=== PATIENT | female | born 1970 | race African-American/Black ===

== ENCOUNTER 2016-09-28 17:21 | Emergency (ER) | payer MEDICAID ==
[~2016-09-28] VITALS: Ht 165.1 cm; Wt 95.0 kg
[~2016-09-28 17:21] MED LIST: DICL75 PO; GLUCTAB PO; GLYB1TAB51 PO; HALO2CON IM; ROBA750T3 PO
[2016-09-28 17:26] VITALS: BP 140/83; PULSE 96; RESP 16; TEMP 97.8; O2SAT 100
[2016-09-28] MEDS ORDERED: SODIUM CHLOR 0.9% 1000 ML INJ 1,000 ML IV SCH (17:44)
[2016-09-28] MEDS ORDERED: SODIUM CHLORIDE 0.9% FLUSH 5 ML FLUSH IVF PRN (17:45)
--- NOTE | 2016-09-28 17:56 | PD ---
HPI Chief Complaint: Edema Time Seen by Provider: 17:32 Travel History International Travel<30 days: No Contact w/Intl Traveler<30days: No Traveled to known affect area: No History of Present Illness HPI Patient is a 46-year-old female who presents to emergency room with complaints of pains to her ankles and feet bilaterally which has been ongoing for the past few weeks as well as swelling to her ankles which she noticed today. Patient reports that she has had increased tingling and pain to her ankles when she walks, reports that she has not suffered any injury or fall. Patient reports that pain is worse at night after being on her feet all day. Reports that she has not taken any medications for her pain. Reports that tonight, she has noticed increased swelling to her ankles. Reports that she has not noticed swelling in the past. Denies history of DVT or PE. Patient reports that she is not on any control pills. Patient with no recent travels or trips. Patient reports that the swelling and tingling to her ankles and feet associated with her diabetes. Patient reports that she was diagnosed with diabetes and was on glipizide as well as metformin, reports that her primary care doctor took her off all her medications about 6-8 months ago as she stopped taking all her medications and her follow up blood sugar "was fine." Patient reports concern as she has not been able to check her blood sugars as her pcp did not give her scripts for refills on her glucometer testing strips. Reports "I don't know how high my sugars are and I think that they may be high. " PFSH Past Medical History Hx Anticoagulant Therapy: No Blood Disorders: No Cardiovascular Problems: No Diabetes: Yes Diminished Hearing: No Genitourinary: No Musculoskeletal: No Neurologic: No Reproductive: No Respiratory: No Schizophrenia: Yes ?: Not : 1 Para: 1 Miscarriage: 0 Past Surgical History Abdominal Surgery: Yes Appendectomy: Yes Cardiac Surgery: No Endocrine Surgery: No Genitourinary Surgery: No Gynecologic Surgery: No Oral Surgery: No Other Surgery: Yes Social History Alcohol Use: No Tobacco Use: Yes (< 1PPD) Substance Use: No Allergies-Medications (Allergen,Severity, Reaction): Coded Allergies: No Known Allergies (Verified , 09/28/16) Reported Meds & Prescriptions Reported Meds & Active Scripts Active Reported Haldol Decanoate Inj (Haloperidol Decanoate) 50 Mg/Ml Inj 75 Mg IM Q28D Review of Systems General / Constitutional: No: Fever Eyes: No: Visual changes HENT: No: Headaches Cardiovascular: No: Chest Pain or Discomfort Respiratory: No: Shortness of Breath Gastrointestinal: No: Abdominal Pain Genitourinary: No: Dysuria Musculoskeletal: Positive: Cramping, Edema, Pain (b/l ankle pain) Skin: No Rash Neurologic: No: Weakness Psychiatric: No: Depression Endocrine: No: Polydipsia Hematologic/Lymphatic: No: Easy Bruising Physical Exam Narrative GENERAL: No acute distress, nontoxic SKIN: Warm and dry. HEAD: Atraumatic. Normocephalic. EYES: Pupils equal and round. No scleral icterus. No injection or drainage. ENT: No nasal bleeding or discharge. Mucous membranes pink and moist. NECK: Trachea midline. No JVD. CARDIOVASCULAR: Regular rate and rhythm. No murmur appreciated. RESPIRATORY: No accessory muscle use. Clear to auscultation. Breath sounds equal bilaterally. GASTROINTESTINAL: Abdomen soft, non-tender, nondistended. Hepatic and splenic margins not palpable. MUSCULOSKELETAL: No obvious deformities. No clubbing. No cyanosis. Patient with mild swelling around her ankles, negative Homans sign. Patient with tenderness diffusely to both her ankles, no obvious fracture or injuries. No signs of erythema or infection or ulcerations NEUROLOGICAL: Awake and alert. No obvious cranial nerve deficits. Motor grossly within normal limits. Normal speech. PSYCHIATRIC: Appropriate mood and affect; insight and judgment normal. Data Data Last Documented VS Vital Signs Date Time Temp Pulse Resp B/P Pulse Ox O2 Delivery O2 Flow Rate FiO2 09/28/16 17:45 16 97 Room Air 09/28/16 17:26 97.8 96 140/83 Orders Basic Metabolic Panel (Bmp) (09/28/16 17:44) Complete Blood Count With Diff (09/28/16 17:44) Prothrombin Time / Inr (Pt) (09/28/16 17:44) Act Partial Throm Time (Ptt) (09/28/16 17:44) Iv Access Insert/Monitor (09/28/16 17:44) Sodium Chlor 0.9% 1000 Ml Inj (Ns 1000 M (09/28/16 17:44) Sodium Chloride 0.9% Flush (Ns Flush) (09/28/16 17:45) Ed Urine Pregnancytest Poc (09/28/16 17:44) Ankle, Complete ([id number]) (09/28/16 ) Ankle, Complete ([id number]) (09/28/16 ) Us Leg Venous Doppler Bilat (09/28/16 ) Labs Laboratory Tests Test 09/28/16 18:05 White Blood Count 7.5 TH/MM3 Red Blood Count 3.90 MIL/MM3 Hemoglobin 10.3 GM/DL Hematocrit 32.3 % Mean Corpuscular Volume 82.7 FL Mean Corpuscular Hemoglobin 26.5 PG Mean Corpuscular Hemoglobin 32.1 % Concent Red Cell Distribution Width 13.8 % Platelet Count 274 TH/MM3 Mean Platelet Volume 8.1 FL Neutrophils (%) (Auto) 55.6 % Lymphocytes (%) (Auto) 34.4 % Monocytes (%) (Auto) 6.9 % Eosinophils (%) (Auto) 2.6 % Basophils (%) (Auto) 0.5 % Neutrophils # (Auto) 4.2 TH/MM3 Lymphocytes # (Auto) 2.6 TH/MM3 Monocytes # (Auto) 0.5 TH/MM3 Eosinophils # (Auto) 0.2 TH/MM3 Basophils # (Auto) 0.0 TH/MM3 CBC Comment DIFF FINAL Differential Comment Prothrombin Time 10.0 SEC Prothromb Time International 0.9 RATIO Ratio Activated Partial 25.8 SEC Thromboplast Time Sodium Level 142 MEQ/L Potassium Level 3.6 MEQ/L Chloride Level 105 MEQ/L Carbon Dioxide Level 28.7 MEQ/L Anion Gap 8 MEQ/L Blood Urea Nitrogen 11 MG/DL Creatinine 0.87 MG/DL Estimat Glomerular Filtration 85 ML/MIN Rate Random Glucose 98 MG/DL Calcium Level 8.6 MG/DL [facility] Medical Decision Making Medical Screen Exam Complete: Yes Emergency Medical Condition: Yes Interpretation(s) Vital Signs Date Time Temp Pulse Resp B/P Pulse Ox O2 Delivery O2 Flow Rate FiO2 09/28/16 17:26 97.8 96 16 140/83 100 Differential Diagnosis Hyperglycemia, metabolic disorder, DVT, dependent edema Narrative Course Patient is a 46-year-old female who presents to emergency room with complaints of tingling to the bottom her feet for the past few weeks as well as pain to her ankles bilaterally. Patient reports that she is on her feet all day, reports that she noticed increased swelling to her ankles tonight. Patient reports that she is concerned that her tingling to the bottom of her feet is secondary to her diabetes. Patient currently is not on any diabetic medications and has not been monitoring her blood sugar. Labs as well as blood sugar ordered. Patient also complaining of pains to bilateral ankles, and ankles ordered as well. Ultrasound of legs ordered to rule out DVT. CBC Wbc 7.5 Hemoglobin 10.3 Hematocrit 32.3 Platelets 274 BMP sodium: 142 potassium 3.6 carbon diozide: 28.7 bun: 11 creatine 0.87 glucose 98 Last Impressions Ankle X-Ray 09/28/16 0000 Signed Impressions: Service Date/Time: Friday, September 28, 2016 17:47 - CONCLUSION: 1. Moderate osteoarthritis. No acute findings. Markell Pemberton MD xray of b/l ankles: no acute findings, mild osteoarthritis, mild to moderate degenerative changes Diagnosis Primary Impression: Swollen ankles Additional Impressions: Bilateral ankle pain Qualified Code: M25.571 - Chronic pain of both ankles Osteoarthritis Qualified Code: M19.071 - Osteoarthritis of both ankles, unspecified osteoarthritis type Degenerative arthritis of ankle Qualified Code: M19.071 - Primary osteoarthritis of both ankles Patient Instructions: General Instructions Additional Instructions: Please provide patient with a copy of her lab work and studies at discharge Please follow-up with your primary care doctor as soon as possible Return to the emergency room as needed Return to emergency with symptoms worsen or progress Please have your ultrasound repeated in 1 week if swelling persists Disposition: 01 DISCHARGE HOME Condition: Stable Hiwot Mireles DO Sep 28, 2016 17:56
[2016-09-28 18:21] LABS: AUTOMATED NEUTROPHIL # 4.2 TH/MM3 (1.8-7.7); BASOPHIL % 0.5 % (0.0-2.0); EOSINOPHIL # 0.2 TH/MM3 (0-0.4); EOSINOPHIL % 2.6 % (0.0-4.0); HEMATOCRIT 32.3 % (35.0-46.0); HEMO FLAGS DIFF FINAL; LYMPH % 34.4 % (9.0-44.0); LYMPHOCYTE # 2.6 TH/MM3 (1.0-4.8); MEAN CELL VOLUME 82.7 FL (80.0-100.0); MEAN CORPUSCULAR HEMOGLOBIN 26.5 PG (27.0-34.0); MEAN CORPUSCULAR HGB CONC 32.1 % (32.0-36.0); MONO % 6.9 % (0.0-8.0); NEUT % 55.6 % (16.0-70.0); PLATELET COUNT 274 TH/MM3 (150-450); RED CELL DISTRIBUTION WIDTH 13.8 % (11.6-17.2); WHITE BLOOD COUNT 7.5 TH/MM3 (4.0-11.0)
[2016-09-28] MEDS ORDERED: HALD50IN IM (18:22)
[2016-09-28 18:29] LABS: POTASSIUM 3.6 MEQ/L (3.5-5.1)
[2016-09-28 18:32] LABS: BICARBONATE 28.7 MEQ/L (21.0-32.0)
[2016-09-28 18:34] LABS: APTT (PATIENT) 25.8 SEC (24.3-30.1); INTERNATIONAL NORMALIZED RATIO 0.9 RATIO
--- NOTE | 2016-09-28 18:43 | RADHPO ---
EXAM DATE/TIME: 09/28/2016 17:47 [facility] COMPARISON: No previous studies available for comparison. INDICATIONS : Left ankle pain and swelling. No known trauma. MEDICAL HISTORY : Diabetes mellitus type II. SURGICAL HISTORY : None. ENCOUNTER: Initial ACUITY: 4 - 6 months PAIN SCORE: 6/10 LOCATION: Left ankle. FINDINGS: There is moderate osteoarthritis of the hindfoot. Mild soft tissue swelling present. No acute fractur e or dislocation. CONCLUSION: 1. Moderate osteoarthritis. No acute findings. Markell Pemberton MD on September 28, 2016 at 18:41 Board Certified Radiologist. This report was verified electronically.
--- NOTE | 2016-09-28 18:45 | RADHPO ---
EXAM DATE/TIME: 09/28/2016 17:52 [facility] COMPARISON: No previous studies available for comparison. INDICATIONS : Right ankle pain and swelling. No known trauma. MEDICAL HISTORY : Diabetes mellitus type II. SURGICAL HISTORY : None. ENCOUNTER: Initial ACUITY: 4 - 6 months PAIN SCORE: 4/10 LOCATION: Right ankle. FINDINGS: Mild osteoarthritis present. No acute fracture or. Bone spurs at the posterior calcaneus. CONCLUSION: 1. Mild to moderate degenerative change of the hindfoot. No acute bony abnormality. Markell Pemberton MD on September 28, 2016 at 18:42 Board Certified Radiologist. This report was verified electronically.
--- NOTE | 2016-09-28 19:35 | RADHPO ---
EXAM DATE/TIME: 09/28/2016 18:40 [facility] COMPARISON: No previous studies available for comparison. INDICATIONS : Bilateral leg swelling. MEDICAL HISTORY : Diabetes. Schizophrenia. SURGICAL HISTORY : Appendectomy. ENCOUNTER: Initial ACUITY: 3 days PAIN SCORE: 2/10 LOCATION: Bilateral legs. TECHNIQUE: Venous ultrasound of the left and right leg was performed from the inguinal ligament to the proximal calf. Real-time, color Doppler and spectral tracing, compression and augmentation techniques were us ed. FINDINGS: RIGHT LEG: There is normal compressibility of the deep venous system from the inguinal region to the proximal ca lf. No echogenic clot is seen in the lumen of the common femoral, femoral, popliteal, and posterior tibial veins. There is a normal response of the venous system to proximal and distal augmentation an d respiration. LEFT LEG: There is normal compressibility of the deep venous system from the inguinal region to the proximal ca lf. No echogenic clot is seen in the lumen of the common femoral, femoral, popliteal, and posterior tibial veins. There is a normal response of the venous system to proximal and distal augmentation an d respiration. CONCLUSION: Normal examination. Markell Pemberton MD on September 28, 2016 at 19:34 Board Certified Radiologist. This report was verified electronically.
[2016-09-28 20:42] VITALS: BP 127/68
== END 2016-09-28 20:44 | disposition home or self-care (01) ==
LOC: PHED 17:21
DX: M19.071 Primary osteoarthritis, right ankle and foot (principal); M19.072 Primary osteoarthritis, left ankle and foot; E11.9 Type 2 diabetes mellitus without complications; F20.9 Schizophrenia, unspecified; F17.210 Nicotine dependence, cigarettes, uncomplicated
CPT/HCPCS: 73610; 80048; 84703; 85025; 85610; 85730; 93970; 96360; 99284; J7030

== ENCOUNTER 2017-01-31 19:53 | Emergency (ER) | payer MEDICAID ==
[~2017-01-31] VITALS: Ht 165.1 cm; Wt 100.0 kg
[~2017-01-31 19:53] MED LIST changes: -DICL75 PO; -GLUCTAB PO; -GLYB1TAB51 PO; +HALD50IN IM; -HALO2CON IM; -ROBA750T3 PO
[2017-01-31 19:56] VITALS: BP 128/73; PULSE 90; RESP 16; TEMP 98.6; O2SAT 100
[2017-01-31] MEDS ORDERED: AUGM875T3 PO (21:06)
[2017-01-31] MEDS ORDERED: DICL75TA PO (21:06)
--- NOTE | 2017-01-31 21:12 | PD ---
HPI Chief Complaint: Back/ Neck Pain or Injury Time Seen by Provider: 21:08 Travel History International Travel<30 days: No Contact w/Intl Traveler<30days: No Traveled to known affect area: No History of Present Illness HPI 46-year-old black female presents to emergency department with complains of a pain down by her ex. She states that this is been present now for last several days. She states that she has a hard time localizing but it seems to be by the crack of her buttocks by her anus. She denies any fever or chills. No nausea vomiting. No abdominal pain. No dysuria or frequency. No melena or diarrhea. PFSH Past Medical History Narrative Medical Borderline diabetes, schizophrenia Hx Anticoagulant Therapy: No Blood Disorders: No Cardiovascular Problems: No Diabetes: Yes Patient Takes Glucophage: No Diminished Hearing: No Genitourinary: No Musculoskeletal: No Neurologic: No Reproductive: No Respiratory: No Immunizations Current: Yes Schizophrenia: Yes Tetanus Vaccination: < 5 Years ?: Not LMP: 01/18/17 : 1 Para: 1 Miscarriage: 0 Past Surgical History Narrative Surgical aPPENDECTOMY Abdominal Surgery: Yes Appendectomy: Yes Cardiac Surgery: No Endocrine Surgery: No Genitourinary Surgery: No Gynecologic Surgery: No Oral Surgery: No Other Surgery: Yes Social History Alcohol Use: Yes (RARE) Tobacco Use: Yes (< 1PPD) Substance Use: No Allergies-Medications (Allergen,Severity, Reaction): Coded Allergies: No Known Allergies (Verified , 01/31/17) Reported Meds & Prescriptions Reported Meds & Active Scripts Active Augmentin (Amoxicillin-Clavulanate) 875-125 Mg Tab 1 Tab PO BID Diclofenac Sodium DR (Diclofenac Sodium) 75 Mg Tabdr 75 Mg PO BID Reported Haldol Decanoate Inj (Haloperidol Decanoate) 50 Mg/Ml Inj 75 Mg IM Q28D Review of Systems Except as stated in HPI: all other systems reviewed are Neg Physical Exam Narrative GENERAL: This is a well-nourished, well-developed patient, in no apparent distress. Patient's exam with the nurse present. SKIN: Patient has a pilonidal cyst which is mildly tender. No erythema, warmth or fluctuance. No pointing., ecchymoses or lesions. Warm and dry. HEAD: Atraumatic. Normocephalic. EYES: PERRL, EOMI, no discharge or injection. No scleral icterus. EARS: Clear NOSE: Nasal turbinates appear normal. THROAT: Mucosa pink and moist. Airway patent. NECK: Trachea midline. supple, moves head freely. LUNGS: Clear to auscultation. CV: Regular in rhythm. ABDOMEN: Soft nontender. EXT: No clubbing cyanosis or edema. Data Data Last Documented VS Vital Signs Date Time Temp Pulse Resp B/P Pulse Ox O2 Delivery O2 Flow Rate FiO2 01/31/17 19:56 98.6 90 16 128/73 100 Room Air MDM Medical Decision Making Medical Screen Exam Complete: Yes Emergency Medical Condition: Yes Medical Record Reviewed: Yes Differential Diagnosis MDM: High Differential diagnoses: Abscess, folliculitis, cellulitis, lymphangitis, abrasion, contact dermatitis Narrative Course Patient's given Augmentin 500 mg by mouth. Lortab 5 a grams by mouth. This is pilonidal cyst Diagnosis Primary Impression: Pilonidal cyst Patient Instructions: General Instructions, Narcotic given in the ED Additional Instructions: Rest. Elevation. keep clean and dry. remove the packing in two days. Daily wound care with soap, water and Neosporin. Diclofenac and Augmentin. Follow-up with a primary care doctor in one week. Return to the ER for any problems. Med/Other Pt SpecificInfo: Prescription(s) given, Wound Care Scripts Amoxicillin-Clavulanate (Augmentin)875-125 Mg Tab1 Tab PO BID #20 TAB Prov:Dionicio Ag MD 01/31/[address] 75 Mg Tabdr75 Mg PO BID #20 TAB Prov:Dionicio Ag MD 01/31/17 Disposition: 01 DISCHARGE HOME Condition: Markell Pyle Jan 31, 2017 21:11
[2017-01-31] MEDS ORDERED: ACETAMINOPHEN/HYDROcodone 325 MG/5 MG TAB PO ONE (21:15)
[2017-01-31] MEDS ORDERED: AMOXICILLIN/CLAVULANATE K 500 MG TAB PO ONE (21:15)
== END 2017-01-31 21:29 | disposition home or self-care (01) ==
LOC: NEPD 19:53
DX: L05.91 Pilonidal cyst without abscess (principal)
CPT/HCPCS: 99284

== ENCOUNTER 2017-07-15 17:57 | Emergency (ER) | payer MEDICAID ==
[~2017-07-15] VITALS: Ht 165.1 cm; Wt 96.4 kg
[~2017-07-15 17:57] MED LIST changes: +AUGM875T3 PO; +DICL75TA PO
[2017-07-15 17:58] VITALS: BP 127/74; PULSE 87; RESP 18; TEMP 98.4; O2SAT 99
--- NOTE | 2017-07-15 19:16 | PD ---
HPI Chief Complaint: Medication Refill Request Time Seen by Provider: 18:52 Travel History International Travel<30 days: No Contact w/Intl Traveler<30days: No Traveled to known affect area: No History of Present Illness HPI PATIENT IS HERE TO GET MEDICATION ADMINISTERED, NOT REFILLED. PATIENT HAS DEPOT HALDOL ORDERED FOR HER AND USED TO GET IT GIVEN IM ON HER GLUTEAL REGION EVERY MONTH AT [facility]..........SINCE THEN THOUGH SHE IS NOW FOLLOWING UP AT [facility] AND THEY TOLD HER THAT THEY DON'T GIVE IM MEDS. SO PATIENT DECIDED TO COME TO ER TO HAVE IT ADMINISTERED. PFSH Past Medical History Hx Anticoagulant Therapy: No Blood Disorders: No Cardiovascular Problems: No Diabetes: Yes Diminished Hearing: No Genitourinary: No Musculoskeletal: No Neurologic: No Reproductive: No Respiratory: No Immunizations Current: Yes Schizophrenia: Yes : 1 Para: 1 Miscarriage: 0 Past Surgical History Abdominal Surgery: Yes Appendectomy: Yes Cardiac Surgery: No Endocrine Surgery: No Genitourinary Surgery: No Gynecologic Surgery: No Oral Surgery: No Other Surgery: Yes Social History Alcohol Use: Yes (RARE) Tobacco Use: Yes (< 1PPD) Substance Use: No Allergies-Medications (Allergen,Severity, Reaction): Coded Allergies: No Known Allergies (Verified , 01/31/17) Reported Meds & Prescriptions Reported Meds & Active Scripts Active Augmentin (Amoxicillin-Clavulanate) 875-125 Mg Tab 1 Tab PO BID Diclofenac Sodium DR (Diclofenac Sodium) 75 Mg Tabdr 75 Mg PO BID Reported Haldol Decanoate Inj (Haloperidol Decanoate) 50 Mg/Ml Inj 75 Mg IM Q28D Review of Systems Except as stated in HPI: all other systems reviewed are Neg Physical Exam Narrative GENERAL: SKIN: Warm and dry. HEAD: Atraumatic. Normocephalic. EYES: Pupils equal and round. No scleral icterus. No injection or drainage. ENT: No nasal bleeding or discharge. Mucous membranes pink and moist. NECK: Trachea midline. No JVD. CARDIOVASCULAR: Regular rate and rhythm. RESPIRATORY: No accessory muscle use. Clear to auscultation. Breath sounds equal bilaterally. GASTROINTESTINAL: Abdomen soft, non-tender, nondistended. MUSCULOSKELETAL: Extremities without clubbing, cyanosis, or edema. No obvious deformities. NEUROLOGICAL: Awake and alert. No obvious cranial nerve deficits. Motor grossly within normal limits. Five out of 5 muscle strength in the arms and legs. Normal speech. PSYCHIATRIC: Appropriate mood and affect; insight and judgment normal. Data Data Last Documented VS Vital Signs Date Time Temp Pulse Resp B/P (MAP) Pulse Ox O2 Delivery O2 Flow Rate FiO2 07/15/17 17:58 98.4 87 18 127/74 (91) 99 Room Air MDM Medical Decision Making Medical Screen Exam Complete: Yes Emergency Medical Condition: No Medical Record Reviewed: Yes Differential Diagnosis N/A Narrative Course PATIENT CAME TO ER TO RECEIVE HER MONTHLY ROUTINE DEPOT HALDOL, WHICH HER NEW PSYCHIATRIST DOES NOT ADMINISTER IT. PAT HAS IT IN HER POSSESION HOWEVER I EXPLAINED, WE ADMINSTER MEDICATIONS THAT WE CAN VERIFY (OR PHARMACIST). PATIENT WAS DISSAPPOINTED BUT WILL FOLLOW UP WITH [facility] TO RECEIVE HER DOSE. Diagnosis Primary Impression: MEDICAL CLEARANCE Disposition: 01 DISCHARGE HOME Condition: Stable Mikael Valdivia MD Jul 15, 2017 19:16
== END 2017-07-15 19:21 | disposition home or self-care (01) ==
LOC: NEPD 17:57
DX: Z76.0 Encounter for issue of repeat prescription (principal); E11.9 Type 2 diabetes mellitus without complications; F20.9 Schizophrenia, unspecified; F17.200 Nicotine dependence, unspecified, uncomplicated; Z79.899 Other long term (current) drug therapy
CPT/HCPCS: 99281

== ENCOUNTER 2018-03-05 17:10 | Inpatient (IN) ==
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
[2018-03-05 17:58] LABS: Baso % (Auto) 0.6 % (0.0-2.0); Eos # (Auto) 0.1 th/mm3 (0.0-0.4); Hematocrit 35.1 % (35.0-46.0); Hemoglobin 11.5 gm/dL (11.6-15.3); Lymph # (Auto) 2.6 th/mm3 (1.0-4.8); Lymph % (Auto) 35.4 % (9.0-44.0); Mean Corpuscular HGB Conc 32.9 % (32.0-36.0); Mean Corpuscular Hemoglobin 26.6 pg (27.0-34.0); Mean Corpuscular Volume 80.7 fL (80.0-100.0); Mean Platelet Volume 8.2 fL (7.0-11.0); Mono # (Auto) 0.6 th/mm3 (0.0-0.9); Mono % (Auto) 8.7 % (0.0-8.0); Neut # (Auto) 3.9 th/mm3 (1.8-7.7); Neut % (Auto) 54.3 % (16.0-70.0); Platelet Count 302 th/mm3 (150-450); Red Blood Count 4.35 mil/mm3 (4.00-5.30); Red Cell Distribution Width 14.9 % (11.6-17.2); White Blood Count 7.3 th/mm3 (4.0-11.0)
[2018-03-05 18:19] LABS: Alanine Aminotransferase 22 U/L (10-53); Albumin 3.7 g/dL (3.4-5.0); Anion Gap 8 meq/L (5-15); Aspartate Aminotransferase 16 U/L (15-37); Blood Urea Nitrogen 6 mg/dL (7-18); Calcium 8.7 mg/dL (8.5-10.1); Carbon Dioxide 27.1 meq/L (21.0-32.0); Chloride 103 meq/L (98-107); Glomerular Filtration Rate 83 mL/min (>89); Glucose,Random 104 mg/dL (74-106); Potassium 3.3 meq/L (3.5-5.1); Sodium 138 meq/L (136-145)
[2018-03-05 18:29] LABS: Alkaline Phosphatase 77 U/L (45-117); Total Protein 8.6 g/dL (6.4-8.2)
[2018-03-05 20:35] LABS: Amphetamine Screen,Urine Neg (Neg); Barbiturate Screen,Urine Neg (Neg); Cannabinoid Screen,Urine Neg (Neg); Cocaine Screen,Urine Neg (Neg)
[2018-03-05 20:47] LABS: Opiate Screen,Urine Neg (Neg)
[2018-03-06] MEDS ORDERED: Aluminum/Magnesium/Simethacone Susp 30 ML UDC PO PRN (00:36)
[2018-03-06] MEDS ORDERED: LORazepam 1 MG Tablet PO PRN (00:36)
[2018-03-06] MEDS ORDERED: Acetaminophen 325 MG Tablet PO PRN (00:36)
[2018-03-06 09:15] LABS: Calcium 8.8 mg/dL (8.5-10.1); Carbon Dioxide 27.4 meq/L (21.0-32.0); Potassium 3.5 meq/L (3.5-5.1)
[2018-03-06 09:19] LABS: Chol/HDL Ratio 2.67 Ratio; HDL Cholesterol 51.6 mg/dL (40.0-60.0)
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
[2018-03-06] MEDS ORDERED: Haloperidol Inj 5 MG/ML Ampul IM PRN (13:04)
[2018-03-06] MEDS ORDERED: Haloperidol Decanoate Inj 50 MG/ML Ampul IM ONE (13:04)
[2018-03-06] MEDS ORDERED: Benztropine Inj 2 MG/2 ML Ampul IM PRN (13:05)
[2018-03-06 14:51] LABS: Hemoglobin A1c 6.6 % (4.3-6.0)
[2018-03-06] MEDS: Haloperidol 5 MG Tablet PO SCH (20:39)
[2018-03-07 08:09] LABS: Baso % (Auto) 0.6 % (0.0-2.0); Eos # (Auto) 0.2 th/mm3 (0.0-0.4); Eos % (Auto) 2.5 % (0.0-4.0); Hematocrit 35.4 % (35.0-46.0); Hemoglobin 11.4 gm/dL (11.6-15.3); Lymph # (Auto) 2.3 th/mm3 (1.0-4.8); Lymph % (Auto) 35.2 % (9.0-44.0); Mean Corpuscular HGB Conc 32.3 % (32.0-36.0); Mean Corpuscular Hemoglobin 25.9 pg (27.0-34.0); Mean Corpuscular Volume 80.3 fL (80.0-100.0); Mean Platelet Volume 8.7 fL (7.0-11.0); Mono # (Auto) 0.5 th/mm3 (0.0-0.9); Mono % (Auto) 8.2 % (0.0-8.0); Neut # (Auto) 3.5 th/mm3 (1.8-7.7); Neut % (Auto) 53.5 % (16.0-70.0); Platelet Count 285 th/mm3 (150-450); Red Blood Count 4.41 mil/mm3 (4.00-5.30); Red Cell Distribution Width 14.9 % (11.6-17.2); White Blood Count 6.6 th/mm3 (4.0-11.0)
[2018-03-07] MEDS: Haloperidol 5 MG Tablet PO SCH ×2 (09:59→21:07)
--- NOTE | 2018-03-07 14:12 | ECG ---
Date Performed: 03/06/2018 Time Performed: 10:58:20 PTAGE: 47 years EKG: Sinus rhythm NORMAL ECG NO PREVIOUS TRACING DOCTOR: Elliott Carter Interpretating Date/Time 03/07/2018 14:08:59
--- NOTE | 2018-03-07 17:30 | P.PNPSY ---
Subjective Chief Complaint: Psychosis Remarks: This is a request for second opinion. Admission note was reviewed and I agree with the history. Patient was seen and case was discussed with nursing. Patient is minimally engaged during the interview. She has poor insight into her admission cannot give me the details of the story that brought her in. Insight is quite poor. She is behaving well on the unit. Mental Status Examination Appearance: Disheveled Consciousness: Alert Orientation: Person, Place (At least) Motor Activity: Other (No motor abnormalities noted) Speech: Unremarkable Language: Adequate Fund of Knowledge: Adequate Attention and Concentration: Easily distracted Memory: Impaired (Psychosis interferes) Mood: Other (Denies issues with mood) Affect: Flat Thought Process & Associations: Circumstantial Thought Content: Thought blocking, Delusional Hallucination Type: Other (Denies AVH but appears internally stimulated) Delusion Type: Paranoid Suicidal Ideation: No Suicidal Plan: No Suicidal Intention: No Homicidal Ideation: No Homicidal Plan: No Homicidal Intention: No Insight: Poor Judgment: Poor Assessment and Plan - Assessment (1) Other schizoaffective disorders Code(s): F25.8 - Other schizoaffective disorders Status: Acute - Plan Plan: I agree with the first opinion to continue petition. Criteria include acute psychosis Justification for Continued Inpatient Stay: Patient would decompensate in a less restrictive setting Request Healthcare Surrogate/Guardian Advocate?: No
[2018-03-08] MEDS: Haloperidol 5 MG Tablet PO SCH ×2 (08:22→21:06)
[2018-03-08 10:09] LABS: Calcium 9.1 mg/dL (8.5-10.1); Carbon Dioxide 29.8 meq/L (21.0-32.0); Potassium 4.1 meq/L (3.5-5.1)
[2018-03-08 10:12] LABS: Chol/HDL Ratio 2.77 Ratio; HDL Cholesterol 49.3 mg/dL (40.0-60.0)
--- NOTE | 2018-03-08 14:55 | P.PNPSY ---
Subjective Chief Complaint: Psychosis Remarks: Patient was seen and case discussed with nursing. Patient continues to have poor insight concerning her admission. He is largely seclusive to self. Nursing is not noted any bizarre behavior. Patient says she is doing "okay." Affect remains blunted. Compliant with medications Mental Status Examination Appearance: Disheveled Consciousness: Alert Orientation: Person, Place (At least) Motor Activity: Other (No motor abnormalities noted) Speech: Unremarkable Language: Adequate Fund of Knowledge: Adequate Attention and Concentration: Easily distracted Memory: Impaired (Psychosis interferes) Mood: Other (Denies issues with mood) Affect: Blunt Thought Process & Associations: Circumstantial Thought Content: Thought blocking, Delusional Hallucination Type: Other (Denies AVH but appears internally stimulated) Delusion Type: Paranoid Suicidal Ideation: No Suicidal Plan: No Suicidal Intention: No Homicidal Ideation: No Homicidal Plan: No Homicidal Intention: No Insight: Poor Judgment: Poor Assessment and Plan - Assessment (1) Other schizoaffective disorders Code(s): F25.8 - Other schizoaffective disorders Status: Acute - Plan Plan: Continue current treatment plan Justification for Continued Inpatient Stay: Patient would decompensate in a less restrictive setting Request Healthcare Surrogate/Guardian Advocate?: No
[2018-03-09] MEDS: Haloperidol 5 MG Tablet PO SCH ×2 (08:19→20:48)
--- NOTE | 2018-03-09 09:36 | P.PNPSY ---
Subjective Chief Complaint: Psychosis Remarks: Patient seen and examined with nurse. Chart reviewed. Case discussed with nursing staff who reports patient's affect is brighter. Patient is medication compliant. On my examination today, patient reports she feels less anxious versus prior to admission. She denies AVH. Denies SI/HI. No paranoia, ideas of reference or thought manipulation. Complains of poor sleep. Also complains of mild stiffness from Haldol. She has some mild cogwheeling on exam. No other side effects from medications. No other physical complaints. With patient's permission, left [facility] for patient's mother requesting that she come visit "patient hospitalized under my care" to assess her progress. Vital Signs Temp Pulse Resp BP Pulse Ox 03/09/18 06:00 98.7 F 100 H 17 133/61 95 Labs reviewed. No new labs. Review of Systems All other systems reviewed negative except as stated in HPI Mental Status Examination Appearance: Appropriate Consciousness: Alert Orientation: Person, Place (At least) Motor Activity: Other (Mild cogwheeling. No other motor abnormalities noted.) Speech: Unremarkable Language: Adequate Fund of Knowledge: Adequate Attention and Concentration: Adequate Memory: Unremarkable Mood: Appropriate Affect: Blunt Thought Process & Associations: Intact Thought Content: Appropriate Hallucination Type: None Delusion Type: None Suicidal Ideation: No Suicidal Plan: No Suicidal Intention: No Homicidal Ideation: No Homicidal Plan: No Homicidal Intention: No Mental Status Exam Remarks: Insight and judgment are fair. Assessment and Plan - Assessment (1) Other schizoaffective disorders Code(s): F25.8 - Other schizoaffective disorders Status: Acute - Plan Plan: Patient improving with oral Haldol supplementing Haldol Decanoate. I will titrate patient's Cogentin to manage mild EPS. I will also add trazodone for sleep. Patient is improved enough now to be capacitated to consent for admission and medication. Voluntary status. I have discussed the R/B/A for medication with her. Transfer to lower acuity unit. Continue other medications and care as ordered. Justification for Continued Inpatient Stay: Medication changes. Discharge Planning: Possible discharge next 1-2 days. Request Healthcare Surrogate/Guardian Advocate?: No
[2018-03-09] MEDS: Benztropine 2 MG Tablet PO SCH (20:49)
[2018-03-09] MEDS ORDERED: traZODone 50 MG Tablet PO SCH (21:00)
[2018-03-10] MEDS: Benztropine 2 MG Tablet PO SCH ×2 (09:14→21:16)
[2018-03-10] MEDS: Haloperidol 5 MG Tablet PO SCH ×2 (09:14→21:16)
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
[2018-03-10 15:07] LABS: Creatine Kinase 58 U/L (26-192)
--- NOTE | 2018-03-10 15:56 | P.PNPSY ---
Subjective Chief Complaint: Psychosis Remarks: Patient seen and examined with nurse. Chart reviewed. Case discussed with nursing staff. No behavioral issues noted overnight. Case discussed in treatment team. On my examination today, the patient continues to complain of poor sleep. She tells me that overnight she "felt something go out of me." She denies any SI or HI. Denies any AVH. No paranoia, ideas of reference or thought manipulation. Denies side effects from medications. Complains of an episode of chest tightness yesterday afternoon but denies any chest pain, shortness of breath or associated symptoms now. Hopeful for discharge soon. Vital Signs Temp Pulse Resp BP Pulse Ox 03/10/18 05:47 98.4 F 72 17 140/67 98 03/09/18 17:50 97.3 F L 88 18 115/70 100 Laboratory Results - last 24 hr 03/10/18 14:11 Total Creatine Kinase 58 Troponin I Less than 0.02 L Labs reviewed. Cardiac enzymes within normal limits 1. Review of Systems All other systems reviewed negative except as stated in HPI Mental Status Examination Appearance: Appropriate Consciousness: Alert Orientation: Person, Place (At least) Motor Activity: Other (No hand tremor, no cogwheeling, no dystonia, no dyskinesia, no other motor abnormalities.) Speech: Unremarkable Language: Adequate Fund of Knowledge: Adequate Attention and Concentration: Adequate Memory: Unremarkable Mood: Appropriate Affect: Blunt Thought Process & Associations: Intact Thought Content: Appropriate Hallucination Type: None Delusion Type: None Suicidal Ideation: No Suicidal Plan: No Suicidal Intention: No Homicidal Ideation: No Homicidal Plan: No Homicidal Intention: No Insight: Poor Judgment: Poor Assessment and Plan - Assessment (1) Other schizoaffective disorders Code(s): F25.8 - Other schizoaffective disorders Status: Acute - Plan Plan: Check urgent EKG (normal sinus rhythm with normal QTc) and cardiac enzymes ( within normal limits) given complaints of chest tightness that reportedly occurred yesterday afternoon. Consult hospitalist for further evaluation/ management of this issue if indicated. Patient would likely benefit from additional Haldol decanoate to bring total dose to 10 times the oral daily dose , but I will hold off on administering this medication until hospitalist has evaluated the patient. I did obtain consent from the patient for this medication. I will titrate patient's trazodone to try to improve sleep. Continue to monitor on the inpatient unit. Continue other medications and care as ordered. Justification for Continued Inpatient Stay: Complicating condition. Medication change. Discharge Planning: Anticipate discharge tomorrow, Friday, so long as the patient is medically cleared. Request Healthcare Surrogate/Guardian Advocate?: No
--- NOTE | 2018-03-10 16:22 | P.CONIM ---
History of Present Illness Requesting Physician: Lonnie Hewitt Reason for Consult: Transient chest pain Primary Care Provider: UNKNOWN Family Provider: Jeet Kearney MD, R2 History of Present Illness: This a 47-year-old female history he denies prior medical history. Patient is currently inpatient psychiatric center we have been consulted for evaluation of transient chest pain which occurred yesterday evening. Patient describes a mid sternal chest tightness which occurred at rest and lasted for, "a few seconds," then resolved spontaneously. There was no associated nausea vomiting diaphoresis or shortness of breath. Patient reports this had occurred approximately a year ago does not recall the specific circumstances but reports it lasted for a few seconds that time as well. Patient is no longer having chest discomfort at this time. Patient denies nausea vomiting diarrhea constipation fevers chills or shortness of breath. Review of Systems All other systems reviewed negative except as stated in HPI [facility] - History History Provided By: Medical Record - Medical History Medical History: Medical History (Last Updated 03/05/18 @ 17:30 by Tori Jurado) Patient denies medical problems - Surgical History Surgical History: Surgical History (Last Updated 03/05/18 @ 17:30 by Tori Jurado) Hx of appendectomy - Tobacco History Second Hand Smoke Exposure: Yes Tobacco Use In Past 30 Days: Yes (1PPD) Smoking Status: Current every day smoker Tobacco Type: Cigarettes Packs Per Day: 1 Years Smoked: 20 - Alcohol History How Often Do You Have a Drink Containing Alcohol: Unable to Obtain - Substance Use History Substance History: No History of Abuse - Travel History Recent Travel in the [place] Within the Last 8 Weeks: No Recent Travel Out of the Country Within the Last 8 Weeks: No - Immunization History Tetanus Immunization: Unsure Hx Influenza Vaccine This Season: No Medications and Allergies Active Medications: Active Medications Acetaminophen (Tylenol) 650 mg PO Q4H PRN PRN Reason: Pain 1-5 or Temp >101F Al Hydrox/Mg Hydrox/Simethicone (Mag-Al Plus Susp Liq) 30 ml PO Q6H PRN PRN Reason: DYSPEPSIA Al Hydroxide/Mg Hydroxide (Milk Of Magnesia Liq) 30 ml PO Q12H PRN PRN Reason: Mild Constipation Benztropine Mesylate (Cogentin) 1 mg PO BID PRN PRN Reason: EXTRA PYRAMIDAL SYMPTOMS Benztropine Mesylate (Cogentin Inj) 1 mg IM Q12HR PRN PRN Reason: EPS, unable to take PO Benztropine Mesylate (Cogentin) 2 mg PO BID [facility] Last Admin: 03/10/18 09:14 Dose: 2 mg Diphenhydramine HCl (Benadryl) 50 mg PO HS PRN PRN Reason: INSOMNIA Last Admin: 03/07/18 21:07 Dose: 50 mg Haloperidol (Haldol) 5 mg PO BID [facility] Last Admin: 03/10/18 09:14 Dose: 5 mg Haloperidol Lactate (Haldol Inj) 5 mg IM BID PRN PRN Reason: Refuses PO Haldol Lorazepam (Ativan) 1 mg PO Q6H PRN PRN Reason: MODERATE TO SEVERE ANXIETY Lorazepam (Ativan Inj) 1 mg IM Q6H PRN PRN Reason: MODERATE TO SEVERE ANXIETY Nicotine (Habitrol 21 Mg Patch.24 Hr) 1 patch T-DERMAL DAILY [facility] Last Admin: 03/10/18 09:17 Dose: 1 patch Patch Removal (Remove Old Patch) 1 each T-DERMAL HS [facility] Last Admin: 03/09/18 20:48 Dose: 1 each Trazodone HCl (Desyrel) 100 mg PO [facility] Allergies Allergy/AdvReac Type Severity Reaction Status Date / Time No Known Allergies Allergy Unverified 03/05/18 17:27 Home Medications Medication Instructions Recorded Confirmed Type No Known Home Medications 03/05/18 03/05/18 History Exam Vital signs: Vital Signs 03/09/18 17:50 03/10/18 05:47 Temperature 97.3 F L 98.4 F Pulse Rate 88 72 Respiratory Rate 18 17 Blood Pressure 115/70 140/67 Pulse Oximetry 100 98 Narrative: GENERAL: This is a well-nourished, well-developed patient, in no apparent distress. CARDIOVASCULAR: Regular rate and rhythm RESPIRATORY: Clear to auscultation. Breath sounds equal bilaterally. GASTROINTESTINAL: Abdomen soft, non-tender, nondistended. Normal active bowel sounds MUSCULOSKELETAL: Extremities without clubbing, cyanosis, or edema. NEURO: Alert & Oriented x4 to person, place, time, situation. Moves all ext x4 Results - Labs CBC & Chem 7: 03/07/18 06:46 03/08/18 09:17 Labs: Laboratory Results - last 24 hr 03/10/18 14:11 Total Creatine Kinase 58 Troponin I Less than 0.02 L Assessment and Plan - Plan Schizoaffective disorder Management per psychiatric team Transient chest tightness evening of 03/09 EKG reviewed and reveals normal sinus rhythm with no acute ST changes Troponin drawn at 2 PM today less than 0.02 Chest pain does not appear to be cardiac in nature appears to be more consistent with GERD will add Tums as needed Elevated hemoglobin A1c 6.6 Recommend patient follow-up with primary care provider for further evaluation and treatment Tobacco use Patient counseled encouraged to abstain Case reviewed and discussed with Dr. Tony Patient appears to be medically stable we will sign off
[2018-03-10] MEDS ORDERED: traZODone 100 MG Tablet PO SCH (21:00)
[2018-03-11 06:19] VITALS: BP 134/61; PULSE 100; RESP 17; TEMP 98.3; O2SAT 99
[2018-03-11] MEDS: Benztropine 2 MG Tablet PO SCH (08:43)
[2018-03-11] MEDS: Haloperidol 5 MG Tablet PO SCH (08:47)
--- NOTE | 2018-03-11 10:20 | ECG ---
Date Performed: 03/10/2018 Time Performed: 15:23:05 PTAGE: 47 years EKG: Sinus rhythm NORMAL ECG Since the PREVIOUS TRACING , no significant change noted PREVIOUS TRACIN03/06/2018 10.58 DOCTOR: Erma Baptiste Interpretating Date/Time 03/11/2018 10:19:06
[2018-03-11] MEDS ORDERED: Haloperidol Decanoate Inj 50 MG/ML Ampul IM ONE (11:25)
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
== END 2018-03-11 15:25 | disposition home or self-care (01) ==
LOC: NEPJ 17:10 → NEDA 21:23 → H270 23:15 → H260 03-09 08:41
PROVIDERS: ADMIT Psychiatry & Neurology Psychiatry; ATTEND Psychiatry & Neurology Psychiatry